=== PATIENT | male | born 1950 | race Caucasian/White ===

== ENCOUNTER 2019-09-05 16:18 | Emergency (ER) | payer MEDICARE, OTHER ==
[~2019-09-05] VITALS: Ht 172.7 cm; Wt 77.1 kg
[~2019-09-05 16:18] MED LIST: ALEVE220 MG PO; AMLODIPINE BESY10 MG; AMLODIPINE-BEN1 EAC5 PO; CADUET 10 MG-41 EACH PO; CHLORDIAZEPOXID25 MG PO; FLOMAX0.4 MG PO; GLYBURIDE-METF1 EACH PO; GLYBURIDE2.5 MG; LANTUS SOL100 UNIT/1 SUB-Q; LISINOPRIL-HCT1 EACH; NAPROXEN500 MG PO; NORCO 5-325 TA1 EACH PO; PERCOCET 5-3251 EACH PO; TAMSULOSIN HCL0.4 MG PO; ZOFRAN ODT8 MG PO
[2019-09-05] MEDS ORDERED: ATORVASTATIN CA40 MG PO (16:32)
[2019-09-05] MEDS ORDERED: METFORMIN HCL1000 MG PO (16:32)
[2019-09-05] MEDS ORDERED: AMLODIPINE BESY10 MG PO (16:33)
[2019-09-05] MEDS ORDERED: ZOFRAN4 MG PO (17:37)
[2019-09-05] MEDS ORDERED: FLOMAX0.4 MG PO (17:37)
[2019-09-05] MEDS ORDERED: NORCO 5-325 TA1 EACH PO (17:37)
== END 2019-09-05 17:49 | disposition home or self-care (01) ==
LOC: ED 16:18
DX: N13.2 Hydronephrosis with renal and ureteral calculous obstruction (principal); K80.70 Calculus of gallbladder and bile duct without cholecystitis without obstruction; E11.9 Type 2 diabetes mellitus without complications; I10 Essential (primary) hypertension; E78.00 Pure hypercholesterolemia, unspecified; Z88.0 Allergy status to penicillin; Z79.84 Long term (current) use of oral hypoglycemic drugs; Z79.899 Other long term (current) drug therapy
CPT/HCPCS: 74176; 80053; 81001; 85025; 96374; 96375; 99284-25; J1885; J2270; J2405; J7030

== ENCOUNTER 2024-09-04 12:28 | Emergency (ER) | payer MEDICARE ==
[~2024-09-04] VITALS: Ht 172.7 cm; Wt 83.8 kg
[~2024-09-04 12:28] MED LIST changes: +AMLODIPINE BESY10 MG PO; +ATORVASTATIN CA40 MG PO; +METFORMIN HCL1000 MG PO; +ZOFRAN4 MG PO
[2024-09-04] MEDS ORDERED: ondansetron HCL 4 MG/2 ML VIAL IV PRN (12:45)
[2024-09-04] MEDS ORDERED: KETOROLAC TROMETHAMINE 15 MG/ML VIAL IV ONE (12:45)
[2024-09-04 12:55] LABS: HEMOGLOBIN 15.1 g/dL (12.0-18.0); RDW 14.1 (10.5-15.0)
[2024-09-04] MEDS ORDERED: LEVOTHYROXINE75 MCG PO (12:58)
[2024-09-04] MEDS ORDERED: PIOGLITAZONE HC15 MG PO (12:59)
[2024-09-04 13:07] LABS: BASOPHILS 0.3 % (0-2); EOSINOPHILS 5.5 % (0-6); HEMATOCRIT 43.6 % (35.0-50.0); LYMPHOCYTES 19.1 % (24-44); MCH 30.4 (27-36); MCHC 34.7 g/dl (30-36); MCV 87.7 fl (81-99); MONOCYTES 12.3 % (0-12); NEUTROPHILS 62.8 % (39-80); PLATELET COUNT 309 K/uL (140-440); RBC 4.97 M/ul (4.3-5.7)
[2024-09-04 13:10] LABS: ALBUMIN/GLOBULIN RATIO 1.14 (1.1-2.4); ANION GAP 15.6 (7-21); BILIRUBIN, TOTAL 0.7 mg/dL (0.2-1.0); BUN/CREATININE RATIO 13.39 (6.0-28.6); CALCIUM 9.1 mg/dL (8.5-10.1); CREATININE, SERUM 2.24 mg/dL (0.70-1.30); POTASSIUM 3.6 mmol/L (3.5-5.1); PROTEIN, TOTAL 7.5 g/dL (6.4-8.2)
[2024-09-04] MEDS ORDERED: MORPHINE SULFATE 4 MG/ML VIAL IV ONE ×2 (13:15→14:30)
[2024-09-04] MEDS ORDERED: SODIUM CHLORIDE 0.9% 1,000 ML IV PRN (14:30)
[2024-09-04 16:55] LABS: BILIRUBIN, URINE NEGATIVE (negative); BLOOD/HGB, URINE NEGATIVE (Negative); KETONE, URINE NEGATIVE (Negative); LEUK ESTERASE, URINE NEGATIVE (negative); NITRITE, URINE NEGATIVE (negative); PH, URINE 6.5 (5-7)
[2024-09-04 17:01] LABS: BACTERIA, URINE RARE /hpf (negative); CASTS, URINE NONE SEEN \\lpf; COLLECTION TYPE, URINE CLEAN CATCH; CRYSTALS, URINE NONE SEEN (0-1+); EPITHELIAL CELLS, URINE SQUAMOUS 1+ /lpf (0-1+); RED BLOOD CELLS, URINE 0-1 /hpf (0-5); REFLEX CULTURE, URINE No (No)
[2024-09-04] MEDS ORDERED: HYDROmorphone HCL 1 MG/ML SYR IV ONE (18:15)
[2024-09-04] MEDS ORDERED: ondansetron HCL 4 MG/2 ML VIAL IV ONE (18:15)
[2024-09-04] MEDS ORDERED: IBU600 MG PO (18:36)
[2024-09-04] MEDS ORDERED: ONDANSETRON ODT4 MG PO (18:36)
[2024-09-04] MEDS ORDERED: PERCOCET 5-3251 EACH PO (18:36)
[2024-09-04] MEDS ORDERED: HYDROCODONE BIT/ACETAMINOPHEN 5/325 MG 1 TAB HOME.PACK PO ONE (18:45)
[2024-09-04] MEDS ORDERED: ONDANSETRON 4 MG HOME.PACK SL ONE (18:45)
[2024-09-04] MEDS ORDERED: OXYCODONE/ACETAMINOPHEN 1 TAB HOME.PACK PO ONE (18:45)
[2024-09-04 19:43] VITALS: BP 164/89
== END 2024-09-04 19:43 | disposition home or self-care (01) ==
LOC: ED 12:28
PROVIDERS: Emergency Medicine
DX: N13.2 Hydronephrosis with renal and ureteral calculous obstruction (principal); I10 Essential (primary) hypertension; E11.9 Type 2 diabetes mellitus without complications; Z88.0 Allergy status to penicillin
CPT/HCPCS: 36415; 74176; 80053; 81001; 85025; 96361; 96374; 96375; 96376; 99284-25; A9270; J1171; J1885; J2270; J2405; J7030